=== PATIENT | male | born 1995 | race African-American/Black ===

== ENCOUNTER 2018-06-14 14:55 | Emergency (ER) | payer BC, OTHER ==
[2018-06-14] MEDS ORDERED: NALOXONE HCL 0.4 MG/ML VIAL IV ONE (15:15)
[2018-06-14 16:51] LABS: Potassium 3.4 mmol/L (3.5-5.1)
[2018-06-14 16:55] LABS: Albumin 3.7 g/dL (3.4-5.0); Calcium 7.9 mg/dL (8.5-10.1)
[2018-06-14 16:57] LABS: Amphetamine Screen, Urine NEGATIVE (NEGATIVE); Barbiturate Scree,Urine NEGATIVE (NEGATIVE); Benzodiazephine Screen, Urine NEGATIVE (NEGATIVE); Cannabinoid Screen, Urine POSITIVE (NEGATIVE); Cocaine Screen, Urine POSITIVE (NEGATIVE); Opiate Scree,Urine NEGATIVE (NEGATIVE); Phencyclidine Screen, Urine NEGATIVE (NEGATIVE)
[2018-06-14 16:59] LABS: BUN/Creatinine Ratio 9.4; Bilirubin, Total 0.6 mg/dL (0.2-1.0); Total Protein 7.4 g/dL (6.4-8.2)
[2018-06-14 17:19] LABS: Basophils # (auto) 0 uL; Basophils % (auto) 0.3 % (0.0-2.0); Eosinophils # (auto) 0.1 uL; Eosinophils % (auto) 0.6 % (0.0-7.0); Hematocrit 41.5 % (41.0-53.0); Hemoglobin 13.8 g/dL (13.5-17.5); Lymphocytes # (auto) 0.7 uL; Lymphocytes % (auto) 6.4 % (10.0-50.0); Mean Corpuscular Hemoglobin 32.7 pg (28.0-32.0); Mean Corpuscular Hgb Conc. 33.2 g/dL (32.0-36.0); Mean Corpuscular Volume 98.4 fL (80.0-100.0); Neutrophils # (auto) 8.5 uL; Neutrophils % (auto) 82.7 % (37.0-80.0); Nucleated Red Blood Cells % 0.1 %; Platelet Count (auto) 207 10^3/uL (140-450); Red Blood Cells 4.22 10^6/uL (4.5-5.90); Red Cell Distribution Width 12.8 % (11.8-14.3); White Blood Cell 10.3 10^3/uL (4.4-10.8)
[2018-06-14 17:23] LABS: Urine Bacteria NONE SEEN /hpf (None Seen); Urine Blood Negative /uL (Negative); Urine Hyaline Cast FEW /lpf (0 - 2); Urine Mucus FEW (None Seen); Urine Specific Gravity 1.018 (1.001-1.035); Urine WBC 3 /hpf (0 - 3)
[2018-06-14 19:07] VITALS: BP 126/66
== END 2018-06-14 19:35 | disposition home or self-care (01) ==
LOC: ER 14:55
DX: T40.601A Poisoning by unspecified narcotics, accidental (unintentional), initial encounter (principal); Y92.89 Other specified places as the place of occurrence of the external cause
CPT/HCPCS: 36415; 51702; 71045; 80053; 80307; 81001; 85025; 94761; 96374; 99284; J7030